=== PATIENT | male | born 1990 | race Two or more races ===

== ENCOUNTER → 2021-06-02 | Emergency (ER) | payer SELFPAY ==
[~2021-06-02] VITALS: Ht 165.1 cm; Wt 65.8 kg
[~2021-06-02] MED LIST: GELATIN SPONGE,ABSORBABLE 1 SPONGE SPONGE TP ONE; TDAP [DIPH/PERTUSSIS/TET] 0.5 ML VIAL IM ONE
[2021-06-02 22:43] VITALS: BP 114/75
--- NOTE | 2021-06-02 23:05 | NUR ---
RT & RN AT PT'S BEDSIDE FOR WOUND CARE
--- NOTE | 2021-06-02 23:20 | NUR ---
Patient discharged to home in stable condition. Written and verbal after care instructions given. Patient verbalizes understanding of instruction.
== END | disposition home or self-care (01) ==
LOC: ER 21:50
DX: S61.112A Laceration without foreign body of left thumb with damage to nail, initial encounter (principal); W26.0XXA Contact with knife, initial encounter; Y93.89 Activity, other specified; Y92.89 Other specified places as the place of occurrence of the external cause; Y99.8 Other external cause status
CPT/HCPCS: 90715